=== PATIENT | male | born 1990 | race Caucasian/White ===

== ENCOUNTER 2018-07-21 00:19 | Emergency (ER) | payer SELFPAY ==
[~2018-07-21] VITALS: Ht 170.2 cm; Wt 98.4 kg
[2018-07-21 00:20] VITALS: BP_SYST 146
== END 2018-07-21 00:28 | disposition left against medical advice (07) ==
LOC: SED 00:19
DX: M54.5 Low back pain (principal); E11.9 Type 2 diabetes mellitus without complications; I10 Essential (primary) hypertension
CPT/HCPCS: 99283